=== PATIENT | female | born 1985 | race Caucasian/White ===

== ENCOUNTER → 2018-03-24 12:42 | Outpatient (CLI) | payer MEDICARE, SELFPAY ==
--- NOTE | 2018-03-24 12:52 | MRI_ITS ---
STUDY: MRI BRAIN WITH AND WITHOUT CONTRAST REASON FOR EXAM: Female, 32 years old. Abnormal prolactin levels TECHNIQUE: Standardized multiplanar fat and water weighted pulse sequences were obtained. 7 ml of Gadavist contrast material was administered intravenously for the contrast portion of the examination. COMPARISON: None. FINDINGS: Mild central atrophy for stated age.. Normal white matter tracts of the supratentorial brain. Normal bilateral basal ganglia. Normal thalami. There is no extra-axial fluid accumulation. Normal flow voids within the major intracranial circulation suggesting patency by spin echo criteria. Normal venous enhancement. There is no enhancing intra-axial or extra-axial abnormality. The pituitary is normal size. There is heterogeneous enhancement with suggestion of a tiny nodule measuring approximately 4.8 x 3 mm which may be consistent with microadenoma. Normal, infundibular stalk, optic chiasm and hypothalamus. Normal tectal plate and pineal gland. Normal midbrain, radha and medulla. Normal cerebellum. Normal basal cisterns. Normal bilateral temporal bones. Normal bilateral internal auditory canals. No demonstrated orbital abnormality, within the constraints of a routine brain study. Minor mucosal thickening within the ethmoid air cells. Normal calvarium and skull base. Normal visualized soft tissue structures. Normal visualized upper cervical spine. MRI/Brain W/WO Contrast IMPRESSION: Findings which may be consistent with microadenoma measuring approximately 4.6 x 3 mm Electronically Signed: Gage Bertrand MD at 16:51 EDT , Service support ,
== END ==
PROVIDERS: Family Provider Family Medicine; PCP Family Medicine; Visit Provider Family Medicine
DX: E22.1 Hyperprolactinemia (principal)
CPT/HCPCS: 70553; A9585

== ENCOUNTER → 2019-08-27 14:03 | Outpatient (CLI) | payer MEDICARE, SELFPAY ==
--- NOTE | 2019-08-27 14:12 | BD_ITS ---
STUDY: DUAL ENERGY X-RAY ABSORPTIOMETRY / DXA REASON FOR EXAM: Female, 34 years old. History of hyperprolactinemia. TECHNIQUE: Bone Mineral Density (BMD) measurements of lumbar spine and bilateral hips were obtained. COMPARISON: None. FINDINGS: Lumbar Spine (L1-L4): g/cm2 (1.245) / T-score (0.7) / Z-score (0.7) Findings are suggestive of normal bone density with a low fracture risk. Left Femur Total: g/cm2 (0.931) / T-score (-0.6) / Z-score (-0.5) Left Femoral Neck: g/cm2 (0.949) / T-score (-0.6) / Z-score (-0.4) Right Femur Total: g/cm2 (0.960) / T-score (-0.4) / Z-score (-0.3) Right Femoral Neck: g/cm2 (0.967) / T-score (-0.5) / Z-score (-0.3) BD/Dexa Bone Density Study IMPRESSION: The patient is considered normal as outlined below according to World Baron Organization (WHO) criteria with a low fracture risk. Reference Information: The T-score is the number of standard deviations above or below the standard which is normal for young adults at their peak bone mineral density. The World Health Organization (WHO) interprets the T-scores as follows: Above -1 Normal bone density Between -1 and -2.5 Osteopenia Equal to / or below -2.5 Osteoporosis As a practical clinical guideline, osteopenia may be graded as follows: Mild -1 through -1.5 Moderate -1.6 through -2.0 Severe -2.1 through -2.4 The Z-score is the number of standard deviations above or below age-matched controls. A Z-score of less than -1.5 would be considered abnormal. References: 1. NIH Osteoporosis and Related Bone Diseases http://www.osteo.org 2. International Society for Clinical Densitometry http://www.iscd.org 3. National Osteoporosis Foundation http://www.nof.org Electronically Signed: Bunny Mart, at 10:31 EST , Service support ,
== END ==
PROVIDERS: Family Provider Family Medicine; PCP Family Medicine
DX: M85.89 Other specified disorders of bone density and structure, multiple sites (principal); E22.1 Hyperprolactinemia
CPT/HCPCS: 77080

== ENCOUNTER → 2020-04-26 14:05 | Outpatient (CLI) | payer MEDICARE, MEDICAID, SELFPAY ==
--- NOTE | 2020-04-26 14:14 | CT_ITS ---
STUDY: CT ABDOMEN AND PELVIS WITH CONTRAST REASON FOR EXAM: Female, 34 years old. CONSTIPATION, ABD PAIN, PITUITARY ISSUES, PT IS FROM PSYCH FACILITY, EXAM REPEATED D/T PT NOT ABLE TO HOLD BREATH RADIATION DOSAGE (If Supplied By Facility): CTDIvol = ( 15.94 ) mGy, DLP = ( 1641.22 ) mGycm TECHNIQUE: Transaxial images were obtained from the dome of the diaphragm to the symphysis pubis with oral contrast. Oral and amp; IV Readi-CAT and amp; 100mL Isovue-300 was administered. Sagittal and coronal images were reconstructed. Individualized dose optimization techniques were used for this CT. COMPARISON: None. FINDINGS: The visualized lung bases are unremarkable. The visualized portions of the heart are within normal limits. Normal liver. Normal gallbladder and extrahepatic biliary system. Normal spleen. Normal pancreas. Normal bilateral adrenal glands. Normal right kidney. Normal left kidney. There is a moderate-sized hiatal hernia. Normal small intestine. Moderate amount of fecal material is seen in the colon. The appendix is visualized and appears normal. Normal abdominal aorta. Normal inferior vena cava. Normal retroperitoneum. Normal urinary bladder. Follicles are seen in the right ovary. Normal abdominal wall. There is straightening of the normal lumbar lordosis. CT/Abdomen/Pelvis WITH Contrast IMPRESSION: Hiatal hernia. Moderate amount of fecal material is seen in the colon. Follicles are seen in the right ovary. Electronically Signed: Bunny Matr, at 15:31 EDT , Service support ,
== END ==
PROVIDERS: PCP Family Medicine; Referring Provider Family Medicine; Visit Provider Family Medicine
DX: R19.00 Intra-abdominal and pelvic swelling, mass and lump, unspecified site (principal)
CPT/HCPCS: 74177; Q9967

== ENCOUNTER → 2021-11-14 | Outpatient (REF) | payer SELFPAY | END | disposition home or self-care (01) | LOC: OLS.AHA 04:12 | PROVIDERS: PCP Family Medicine; Visit Provider Family Medicine | DX: E03.9 Hypothyroidism, unspecified (principal); E22.1 Hyperprolactinemia; E05.90 Thyrotoxicosis, unspecified without thyrotoxic crisis or storm | CPT/HCPCS: 82140 ==

== ENCOUNTER → 2022-01-16 | Outpatient (REF) | payer SELFPAY | END | disposition home or self-care (01) | LOC: OLS.AHA 03:53 | PROVIDERS: PCP Family Medicine; Referring Provider Family Medicine; Visit Provider Family Medicine | DX: Z79.899 Other long term (current) drug therapy (principal); Z51.81 Encounter for therapeutic drug level monitoring | CPT/HCPCS: 82140 ==